=== PATIENT | male | born 1995 | race Caucasian/White ===

== ENCOUNTER 2018-05-08 15:08 | Emergency (ER) | payer BC ==
--- NOTE | 2018-05-08 15:18 | ER Report ---
History and Physical Time Seen By MD: 15:18 Hx. of Stated Complaint: woke up this morning with n/v, states there's blood in the vomit. last vomit at 2:45 HPI/ROS CHIEF COMPLAINT: Nausea, vomiting, abdominal pain HISTORY OF PRESENT ILLNESS: 23-year-old male patient presents to emergency room with complaint of nausea, vomiting and abdominal pain. Patient states that the pain started this morning. He states he's not been able to keep down any food or water. He states that his pain is currently a 7.5 out of 10. He states these had this in the past, typically he takes a warm bath and symptoms resolved. He states that nothing seemed to help. He states he has not been able take any medication for this. Patient denies any diarrhea. He also denies any alcohol consumption. REVIEW OF SYSTEMS: Respiratory: No cough, no dyspnea. Cardiovascular: No chest pain, no palpitations. Gastrointestinal: As noted above Musculoskeletal: No back pain. Allergies: Coded Allergies: No Known Drug Allergies (Unverified , 05/08/18) Home Meds Active Scripts Ondansetron (ZOFRAN ODT) 4 Mg Tab.rapdis, 4 MG PO Q6H PRN for NAUSEA/VOMITING, #20 TAB.JUSTIN Prov:OLIVERMILTON [facility] 05/08/18 Tramadol Hcl (ULTRAM) 50 Mg Tablet, 50 MG PO Q4-6H PRN for PAIN, #12 TAB Prov:MILTON BOYD [facility] 05/08/18 Past Medical/Surgical History Patient has a past medical history of nausea and vomiting, patient states that when he has this typically he can take a bath and symptoms resolve. Patient denies any surgical history. Reviewed Nurses Notes: Yes Constitutional Vital Sign - Last 24 Hours 05/08/18 05/08/18 05/08/18 05/08/18 15:08 15:11 15:12 15:23 Temp 97.7 Pulse ??? 57 ??? Resp 20 B/P (MAP) 144/87 (106) 144/87 Pulse Ox 98 98 O2 Delivery Room Air 05/08/18 05/08/18 05/08/18 05/08/18 15:30 15:38 15:53 16:00 Pulse 63 ??? B/P (MAP) 143/95 (111) 142/96 (111) Pulse Ox 99 95 05/08/18 05/08/18 05/08/18 05/08/18 16:08 16:23 16:27 16:30 Pulse ? B/P (MAP) 143/82 (102) 138/89 (105) 05/08/18 05/08/18 05/08/18 05/08/18 16:38 16:42 16:43 16:58 Pulse 55 46 54 Pulse Ox 94 100 98 O2 Flow Rate 2.0 05/08/18 17:00 B/P (MAP) 155/87 (109) Physical Exam General Appearance: The patient is alert, has no immediate need for airway protection and no current signs of toxicity. Respiratory: Chest is non tender, lungs are clear to auscultation. Cardiac: regular rate and rhythm Gastrointestinal: Abdomen is soft and tender in the epigastric region, no masses, bowel sounds are hypoactive. Musculoskeletal: Neck: Neck is supple and non tender. Extremities have full range of motion and are non tender. Skin: No rashes or lesions. DIFFERENTIAL DIAGNOSIS: After history and physical exam differential diagnosis was considered for abdominal pain including but not limited to appendicitis, cholecystitis, gastritis and urinary tract infection. Included in the differential is pancreatitis, bowel obstruction. Medical Decision Making Data Points Result Diagram: 05/08/18 1528 05/08/18 1528 Laboratory Hematology Test 05/08/18 15:28 05/08/18 16:29 Red Blood Count 5.95 M/uL (4.00-5.60) Mean Corpuscular Volume 89.7 fL (80.0-96.0) Mean Corpuscular Hemoglobin 31.5 pg (26.0-33.0) Mean Corpuscular Hemoglobin Concent 35.1 g/dL (32.0-36.0) Red Cell Distribution Width 12.9 % (11.5-14.5) Mean Platelet Volume 7.6 fL (7.2-11.1) Neutrophils (%) (Auto) 91.3 % (39.4-72.5) Lymphocytes (%) (Auto) 5.2 % (17.6-49.6) Monocytes (%) (Auto) 3.3 % (4.1-12.4) Eosinophils (%) (Auto) 0.1 % (0.4-6.7) Basophils (%) (Auto) 0.1 % (0.3-1.4) Nucleated RBC Relative Count (auto) 0.1 /100WBC Neutrophils # (Auto) 16.3 K/uL (2.0-7.4) Lymphocytes # (Auto) 0.9 K/uL (1.3-3.6) Monocytes # (Auto) 0.6 K/uL (0.3-1.0) Eosinophils # (Auto) 0.0 K/uL (0.0-0.5) Basophils # (Auto) 0.0 K/uL (0.0-0.1) Nucleated RBC Absolute Count (auto) 0.02 K/uL Sodium Level 140 mmol/L (137-145) Potassium Level 4.1 mmol/L (3.5-5.0) Chloride Level 100 mmol/L (98-107) Carbon Dioxide Level 25 mmol/L (22-30) Blood Urea Nitrogen 12 mg/dl (9-21) Creatinine 0.80 mg/dl (0.66-1.25) Glomerular Filtration Rate Calc > 60.0 Random Glucose 106 mg/dl (75-110) Calcium Level 10.0 mg/dl (8.4-10.2) Total Bilirubin 0.9 mg/dl (0.2-1.3) Aspartate Amino Transf (AST/SGOT) 21 U/L (0-35) Alanine Aminotransferase (ALT/SGPT) 29 U/L (0-56) Alkaline Phosphatase 97 U/L (0-126) C-Reactive Protein < 0.5 mg/dl (<1.0) Total Protein 8.4 g/dl (6.3-8.2) Albumin 5.0 g/dl (3.5-5.0) Amylase Level 101 U/L (0-110) Lipase 93 U/L (23-300) Urine Color Yellow Urine Clarity Clear Urine pH 7.0 pH (4.8-9.5) Urine Specific [place] 1.030 Urine Protein Negative mg/dL (NEGATIVE) Urine Glucose (UA) Negative mg/dL (NEGATIVE) Urine Ketones 20 mg/dL (NEGATIVE) Urine Blood Negative (NEGATIVE) Urine Nitrite Negative (NEGATIVE) Urine Bilirubin Negative (NEGATIVE) Urine Urobilinogen Negative mg/dL (0.2-1.9) Urine Leukocyte Esterase Negative (NEGATIVE) Urine RBC None /HPF (0-2/HPF) Urine WBC None /HPF (0-5/HPF) Urine Squamous Epithelial Cells None /LPF (</=FEW) Urine Bacteria Negative /HPF (NONE-FEW) Urine Mucus None /HPF (NONE-FEW) Chemistry Test 05/08/18 15:28 05/08/18 16:29 White Blood Count 17.8 k/uL (4.5-11.0) Red Blood Count 5.95 M/uL (4.00-5.60) Hemoglobin 18.7 g/dL (14.0-18.0) Hematocrit 53.4 % (42.0-52.0) Mean Corpuscular Volume 89.7 fL (80.0-96.0) Mean Corpuscular Hemoglobin 31.5 pg (26.0-33.0) Mean Corpuscular Hemoglobin Concent 35.1 g/dL (32.0-36.0) Red Cell Distribution Width 12.9 % (11.5-14.5) Platelet Count 260 K/uL (150-450) Mean Platelet Volume 7.6 fL (7.2-11.1) Neutrophils (%) (Auto) 91.3 % (39.4-72.5) Lymphocytes (%) (Auto) 5.2 % (17.6-49.6) Monocytes (%) (Auto) 3.3 % (4.1-12.4) Eosinophils (%) (Auto) 0.1 % (0.4-6.7) Basophils (%) (Auto) 0.1 % (0.3-1.4) Nucleated RBC Relative Count (auto) 0.1 /100WBC Neutrophils # (Auto) 16.3 K/uL (2.0-7.4) Lymphocytes # (Auto) 0.9 K/uL (1.3-3.6) Monocytes # (Auto) 0.6 K/uL (0.3-1.0) Eosinophils # (Auto) 0.0 K/uL (0.0-0.5) Basophils # (Auto) 0.0 K/uL (0.0-0.1) Nucleated RBC Absolute Count (auto) 0.02 K/uL Glomerular Filtration Rate Calc > 60.0 Calcium Level 10.0 mg/dl (8.4-10.2) Total Bilirubin 0.9 mg/dl (0.2-1.3) Aspartate Amino Transf (AST/SGOT) 21 U/L (0-35) Alanine Aminotransferase (ALT/SGPT) 29 U/L (0-56) Alkaline Phosphatase 97 U/L (0-126) C-Reactive Protein < 0.5 mg/dl (<1.0) Total Protein 8.4 g/dl (6.3-8.2) Albumin 5.0 g/dl (3.5-5.0) Amylase Level 101 U/L (0-110) Lipase 93 U/L (23-300) Urine Color Yellow Urine Clarity Clear Urine pH 7.0 pH (4.8-9.5) Urine Specific [place] 1.030 Urine Protein Negative mg/dL (NEGATIVE) Urine Glucose (UA) Negative mg/dL (NEGATIVE) Urine Ketones 20 mg/dL (NEGATIVE) Urine Blood Negative (NEGATIVE) Urine Nitrite Negative (NEGATIVE) Urine Bilirubin Negative (NEGATIVE) Urine Urobilinogen Negative mg/dL (0.2-1.9) Urine Leukocyte Esterase Negative (NEGATIVE) Urine RBC None /HPF (0-2/HPF) Urine WBC None /HPF (0-5/HPF) Urine Squamous Epithelial Cells None /LPF (</=FEW) Urine Bacteria Negative /HPF (NONE-FEW) Urine Mucus None /HPF (NONE-FEW) Urinalysis Test 05/08/18 16:29 Urine Color Yellow Urine Clarity Clear Urine pH 7.0 pH (4.8-9.5) Urine Specific [place] 1.030 Urine Protein Negative mg/dL (NEGATIVE) Urine Glucose (UA) Negative mg/dL (NEGATIVE) Urine Ketones 20 mg/dL (NEGATIVE) Urine Blood Negative (NEGATIVE) Urine Nitrite Negative (NEGATIVE) Urine Bilirubin Negative (NEGATIVE) Urine Urobilinogen Negative mg/dL (0.2-1.9) Urine Leukocyte Esterase Negative (NEGATIVE) Urine RBC None /HPF (0-2/HPF) Urine WBC None /HPF (0-5/HPF) Urine Squamous Epithelial Cells None /LPF (</=FEW) Urine Bacteria Negative /HPF (NONE-FEW) Urine Mucus None /HPF (NONE-FEW) EKG/Imaging Imaging ABDOMEN/PELVIS WITH CONTRAST Additional pertinent History: Abdominal pain. Nausea. Vomiting blood. One of the following dose optimization techniques was utilized in the performance of this exam: Automated exposure control; adjustment of the mA and/or kV according to the patient's size; or use of an iterative reconstruction technique. Specific details can be referenced in the facility's radiology CT exam operational policy. TECHNIQUE: Spiral scan was through the abdomen and pelvis during injection of nonionic iodinated intravenous contrast. Contrast: 75 mL of IV Isovue-370. COMPARISON STUDIES: none. FINDINGS: Liver / biliary: Homogenous liver with no liver lesions. Gallbladder without stones Pancreas: negative Spleen: negative Adrenal glands: negative Kidneys / retroperitoneum: No renal stones. Homogenous nephrograms with no focal renal lesions or abnormal enhancement Pelvic structures: negative Bowel / peritoneum / mesenteries: No visualized bowel pathology. The distal esophagus, stomach, duodenum small and large bowels unremarkable with no focal inflammation or mass lesion identified Vessels: negative Musculoskeletal / Body wall: negative Lymph node assessment: Scattered normal size. Mesenteric lymph nodes. Lower chest: negative IMPRESSION: 1. Negative CT scan of the abdomen/pelvis for acute pathology. Report Dictated By: Pipe Pendleton MD at 05/08/2018 4:31 PM Report E-Signed By: Pipe Pendleton MD at 05/08/2018 4:36 PM ED Course/Re-evaluation ED Course Patient was admitted and examined, history and physical were obtained. Differential diagnoses were considered. On examination lungs are clear, heart is regular, abdomen is soft and tender in the epigastric region. Bowel sounds are hypoactive. A CBC, CMP, urinalysis, CT scan of abdomen and pelvis were done. The lab work did show patient did have an elevated white count of 17,000 with left shift. CMP was unremarkable, urinalysis was negative. CT scan of the abdomen and pelvis were done. That showed no acute intra-abdominal abnormalities. I believe that the elevated white count is likely related to deep margin patient secondary to the vomiting. I discussed this with patient. Patient did receive a dose of Zofran here in the emergency room. He states he continued to feel nauseated, we did give him a dose of Phenergan. Patient states he is feeling better. We will go ahead and discharge patient home at this time. He is follow-up with his primary care provider in the next week. Instructed to emergency room if co ndition worsens. Patient verbalized understanding and agreement with plan. Decision to Disposition Date: May 08, 2018 Decision to Disposition Time: 17:40 Depart Departure Latest Vital Signs Vital Signs Date Time Temp Pulse Resp B/P (MAP) Pulse Ox O2 Delivery O2 Flow Rate FiO2 05/08/18 17:00 155/87 (109) 05/08/18 16:58 54 98 05/08/18 16:42 2.0 05/08/18 15:12 97.7 20 Room Air Impression: Primary Impression: Abdominal pain Additional Impression: Gastroenteritis Condition: Improved Disposition: HOME OR SELF-CARE New Scripts Ondansetron (ZOFRAN ODT) 4 Mg Tab.rapdis 4 MG PO Q6H PRN for NAUSEA/VOMITING, #20 TAB.JUSTIN Prov: MILTON BOYD 05/08/18 Tramadol Hcl (ULTRAM) 50 Mg Tablet 50 MG PO Q4-6H PRN for PAIN, #12 TAB Prov: MILTON BOYD 05/08/18 Patient Instructions: Abdominal Pain (ED) Additional Instructions: Increase fluid intake. Clear liquid diet for the next 24-48 hours. After that you may advance diet as tolerated starting with complex carbohydrates; rice, bread or pasta. Follow up with your primary care provider in the next week. Return to the ER if condition worsens. You may take over the counter Pepto Bismol as needed for cramping, diarrhea and discomfort. Problem Qualifiers Primary Impression: Abdominal pain Abdominal location: epigastric Qualified Codes: R10.13 - Epigastric pain MILTON BOYD May 08, 2018 15:18
[2018-05-08] MEDS ORDERED: NS(*) 0.9% 1000 ML BAG 1,000 ML IV ONE (15:22)
[2018-05-08] MEDS ORDERED: ONDANSETRON 4 MG/2 ML VIAL IVP ONE (15:25)
[2018-05-08] MEDS ORDERED: MORPHINE 2 MG/ML SYR IVP ONE (15:25)
[2018-05-08] MEDS ORDERED: IOPAMIDOL 76% 75 ML INFUS BTL 0 ML ONE (15:35)
[2018-05-08 15:44] LABS: PLATELET COUNT, AUTOMATED 260 K/uL (150-450)
[2018-05-08] MEDS ORDERED: IOPAMIDOL 76% 75 ML INFUS BTL 75 ML ONE (16:10)
[2018-05-08] MEDS ORDERED: PROMETHAZINE 25 MG/ML 1 ML AMP IVP ONE (16:20)
[2018-05-08 17:00] VITALS: BP 155/87
--- NOTE | 2018-05-08 17:30 | RADIOLOGY IMAGING REPORT ---
FACILITY: [facility] PATIENT NAME: Prateek Smith : 1995 MR: [id number] V: [id number] EXAM DATE: ORDERING PHYSICIAN: MILTON BOYD TECHNOLOGIST: Location: [facility] Patient: Prateek Smith : 1995 Visit/Account:[id number] Date of Sevice: 05/08/2018 ABDOMEN/PELVIS WITH CONTRAST Additional pertinent History: Abdominal pain. Nausea. Vomiting blood. One of the following dose op timization techniques was utilized in the performance of this exam: Automated exposure control; adjus tment of the mA and/or kV according to the patient's size; or use of an iterative reconstruction frederick hnique. Specific details can be referenced in the facility's radiology CT exam operational policy. TECHNIQUE: Spiral scan was through the abdomen and pelvis during injection of nonionic iodinated in travenous contrast. Contrast: 75 mL of IV Isovue-370. COMPARISON STUDIES: none. FINDINGS: Liver / biliary: Homogenous liver with no liver lesions. Gallbladder without stones Pancreas: negative Spleen: negative Adrenal glands: negative Kidneys / retroperitoneum: No renal stones. Homogenous nephrograms with no focal renal lesions or ab normal enhancement Pelvic structures: negative Bowel / peritoneum / mesenteries: No visualized bowel pathology. The distal esophagus, stomach, duod enum small and large bowels unremarkable with no focal inflammation or mass lesion identified Vessels: negative Musculoskeletal / Body wall: negative Lymph node assessment: Scattered normal size. Mesenteric lymph nodes. Lower chest: negative IMPRESSION: 1. Negative CT scan of the abdomen/pelvis for acute pathology. Report Dictated By: Pipe Pendleton MD at 05/08/2018 4:31 PM Report E-Signed By: Pipe Pendleton MD at 05/08/2018 4:36 PM WSN:[email or web address]
[2018-05-08] MEDS ORDERED: ONDA4TAB PO (17:38)
[2018-05-08] MEDS ORDERED: TRAM-627 PO (17:38)
== END 2018-05-08 18:00 | disposition short-term general hospital (02) ==
LOC: ER 15:17
DX: K52.9 Noninfective gastroenteritis and colitis, unspecified (principal); R10.13 Epigastric pain
CPT/HCPCS: 74177; 81001; 82150; 83690; 85025; 86140; 96361; 96374; 96375; 99284; J2270; J2405; J2550; J7030; Q9967; 82040; 82247; 82310; 82374; 82435; 82565; 82947; 84075; 84132; 84155; 84295; 84450; 84460; 84520